=== PATIENT | female | born 1940 | race Caucasian/White ===

== ENCOUNTER → 2024-08-03 10:10 | Outpatient (CLI) | payer MEDICARE, SELFPAY ==
--- NOTE | 2024-08-03 10:16 | DI.CT.S_ITS ---
PROCEDURE: CT CHEST WO CON INDICATIONS: Eval lung. Hx of COPD TECHNIQUE: Noncontrast 5 mm thick sections acquired from the pulmonary apices to the posterior costophrenic angles. 1 mm lung window, 5 mm thick coronal and sagittal and 7 mm axial MIP reformats were then acquired. For radiation dose reduction, the following was used: automated exposure control, adjustment of mA and/or kV according to patient size. COMPARISON: [facility], [facility], 03/09/2023, 20:34. FINDINGS: Image quality: Diagnostic. Lower Neck: No enlarged lymph nodes. Thyroid: No thyroid nodules which require sonographic follow up, per consensus guidelines. Axillae: No enlarged lymph nodes. Chest Wall: Unremarkable. Bones: Unremarkable. Lungs and Pleura: No pneumothorax or pleural effusions. No consolidation or suspicious nodules. There is severe emphysematous change and postsurgical distortion of the right lung consistent with partial right pneumonectomy. Left posterior small diaphragmatic defect allowing a small amount of left upper quadrant retroperitoneal fat to extend into the inferior posterior left pleural space. Heart: Heart size is normal. No pericardial effusion. Thoracic Vessels: The aorta and pulmonary arteries demonstrate normal size except for slight prominence of the ascending aorta measuring 3.7 cm near the root.. Mediastinum and Gloria: No enlarged lymph nodes. Esophagus: No wall thickening. No hiatal hernia. Upper Abdomen: Visualized upper abdomen solid organs and bowel loops appear normal. IMPRESSION: Severe emphysematous change, postsurgical distortion consistent with partial right pneumonectomy. Incidental note is made of a small diaphragmatic defect with a minimal degree of subdiaphragmatic fat extension into the posterior lower left pleural space. Minimal prominence of the ascending aorta at 3.7 cm maximal axial dimension. Dictated by: Jay Degroot M.D. on 08/03/2024 at 11:07 Approved by: Jay Degroot M.D. on 08/03/2024 at 11:10
== END ==
PROVIDERS: PCP Physician Assistant; Referring Provider Physician Assistant; Visit Provider Student in an Organized Health Care Education/Training Program
DX: J44.9 Chronic obstructive pulmonary disease, unspecified (principal)
CPT/HCPCS: 71250

== ENCOUNTER → 2024-08-09 11:10 | Outpatient (CLI) | payer MEDICARE, SELFPAY ==
[2024-08-09 12:52] LABS: Add Manual Diff / Slide Review NO; Basophils Absolute Auto 100 /uL (0-100); Basophils Percent Auto 0.6 % (0-2); Eosinophils Absolute Auto 100 /uL (0-450); Eosinophils Percent Auto 1.2 % (2-4); Hematocrit 45.7 % (36-46); Hemoglobin 15.4 g/dL (12.0-16.0); Lymphocytes Absolute Auto 2900 /uL (1100-4500); Lymphocytes Percent Auto 30.3 % (25-40); Mean Corpuscular HGB Conc 33.7 % (30-36); Mean Corpuscular Hemoglobin 33.1 PG (26-34); Mean Corpuscular Volume 98.1 fL (80-100); Monocytes Absolute Auto 800 /uL (0-900); Monocytes Percent Auto 8.8 % (3-14); Neutrophils Absolute Auto 5600 /uL (1500-7000); Neutrophils Percent Auto 59.1 % (50-75); Platelet Count 266 X10^3/uL (150-400); Red Blood Cell Count 4.66 X10^6/uL (4.0-5.2); Red Cell Distribution Width 13.1 % (11.6-14.8); White Blood Cell Count 9.6 X10^3/uL (4.5-11.0)
== END ==
PROVIDERS: PCP Physician Assistant; Referring Provider Student in an Organized Health Care Education/Training Program; Visit Provider Student in an Organized Health Care Education/Training Program
DX: J44.9 Chronic obstructive pulmonary disease, unspecified (principal); Z87.891 Personal history of nicotine dependence; R94.2 Abnormal results of pulmonary function studies; J43.2 Centrilobular emphysema; J96.11 Chronic respiratory failure with hypoxia
CPT/HCPCS: 36415; 85025; 94060; 94726; 94729